=== PATIENT | male | born 1965 | race Caucasian/White ===

== ENCOUNTER → 2017-05-30 | Day surgery (SDC) | payer OTHER ==
[~2017-05-30] VITALS: Ht 177.8 cm; Wt 83.9 kg
[~2017-05-30] MED LIST: ALBU8.5H2 INHALATION; METR500T PO; OMEP20CA11 PO; OMEP20TA86 PO; Sodium Chloride LOK Flush 10 mL Syringe IV PRN; fentaNYL-PF 50 mCg/mL 2 mL Inj IVPUSH PRN
[2017-05-30 09:15] VITALS: BP 138/89; PULSE 87; RESP 16; O2SAT 98
[2017-05-30] MEDS: 0.9% Sodium Chloride 1,000 ML IV SCH ×2 (09:25→10:02)
[2017-05-30 10:19] VITALS: BP 110/74; PULSE 89; O2SAT 97
[2017-05-30 10:25] VITALS: BP 111/67; PULSE 77; O2SAT 97
[2017-05-30 10:35] VITALS: BP 109/74; PULSE 86; O2SAT 97
--- NOTE | 2017-05-30 10:37 | ENDO ---
[address] [address] ENDOSCOPY PROCEDURE PATIENT: NIRMAL SNYDER : 1965 MR#: [id number] ADMIT: 05/30/2017 JOB ID: [id number] DATE: 05/30/2017 TYPE OF OPERATION: 1. Esophagogastroduodenoscopy with biopsy. 2. Colonoscopy with biopsy. PREOPERATIVE DIAGNOSIS(ES): Abdominal pain, diarrhea, rectal bleeding. POSTOPERATIVE DIAGNOSIS(ES): 1. Mild nonerosive gastritis. 2. Small internal hemorrhoids. 3. A 3 mm ascending colon removed by cold biopsy forceps. 4. A small ulcer seen at the opening of the ileocecal valve. ANESTHESIA: 1. Fentanyl 175 mcg. 2. Versed 9 mg IV administered. COMPLICATIONS: None. BLOOD LOSS: Minimal. DESCRIPTION OF PROCEDURE: After the risks and benefits were explained to the patient, informed consent was obtained. After anesthesia administered, the upper endoscope was inserted into the mouth, intubated into esophagus, stomach, second portion of duodenum. Mucosa carefully examined. After procedure was done, the scope withdrawn and procedure terminated. Colonoscope was then inserted per rectum to the terminal ileum and mucosa carefully examined. Prep of the patient was excellent. After procedure was done, the scope withdrawn and procedure terminated. FINDINGS: Upon inspection of the esophagus, the esophagus was normal without masses, ulcers or lesions. Z-line located 40 cm from incisors. Upon entering the stomach, there was mild nonerosive gastritis that was seen. No masses, ulcers or lesions were seen. Retroflexion normal. Duodenal bulb, first and second portion normal. Biopsy taken at the duodenum, antrum and body of stomach. Upon inspection of the anus, no masses, hemorrhoids, ulcers, or fissures are seen. Throughout the entire examination, there was a 3 mm ascending colon polyp removed by cold biopsy forceps. There was also a very small 2 mm ulcers that was seen at the opening of the ileocecal valve. Terminal ileum appeared normal. Biopsies taken of the terminal ileum and random colon. Retroflexion showed small internal hemorrhoids. IMPRESSIONS: 1. Mild nonerosive gastritis. 2. Small internal hemorrhoids. 3. A 3 mm ascending colon polyp removed by cold biopsy forceps. 4. A 2 mm ulcer seen at the opening of the ileocecal valve. RECOMMENDATIONS: 1. Await pathology results. 2. Followup in GI clinic as needed. If tubular adenoma, then next colonoscopy should be in five years.
[2017-05-30 10:45] VITALS: BP 90/57; PULSE 97; O2SAT 98
--- NOTE | 2017-05-31 11:17 | PATH ---
SURGICAL PATHOLOGY Attending Physician:Sebastian Singh MD CASE STATUS: Signed Out PATIENT NAME: NIRMAL SNYDER PID: [id number] : 1965 DATE COLLECTED:05/30/2017 16:41 SPECIMEN: 1: Duodenum, Biopsy 2: Stomach, Antrum, Biopsy 3: Gastric, Biopsy 4: Ileum, Biopsy 5: Colon, Biopsy 6: Colon, Polyp CLINICAL HISTORY: 1). DUODENUM BIOPSY 2). ANTRUM BIOPSY 3). GASTRIC BODY BIOPSY (RULE OUT H.PYLORI) 4). TERMINAL ILEUM BIOPSY 5). RANDOM COLON BIOPSY 6). ASCENDING COLON POLYP FINAL DIAGNOSIS: 1.DUODENUM BIOPSY: FRAGMENTS OF NORMAL SMALL BOWEL MUCOSA. Normal delicate mucosal villi present. Negative for significant inflammation, dysplasia and malignancy. 2.GASTRIC ANTRUM BIOPSY: FRAGMENTS OF ANTRAL MUCOSA NEGATIVE FOR SIGNIFICANT INFLAMMATION. Negative for evidence of Helicobacter on H&E stain. Negative for intestinal metaplasia. Negative for dysplasia and malignancy. 3.GASTRIC BODY BIOPSY: GASTRIC FUNDIC MUCOSA WITH SUPERFICIAL HYPEREMIA, BUT NEGATIVE FOR SIGNIFICANT INFLAMMATION. Negative for evidence of Helicobacter on H&E stain. Negative for intestinal metaplasia. Negative for dysplasia and malignancy. 4.TERMINAL ILEUM BIOPSY: FRAGMENT OF SMALL BOWEL MUCOSA CONSISTENT WITH TERMINAL ILEUM. Negative for significant inflammation, dysplasia and malignancy. 5.RANDOM COLON BIOPSY: FRAGMENTS OF NORMAL-APPEARING COLON MUCOSA. Negative for significant architectural distortion. Negative for significant inflammation, dysplasia and malignancy. 6.ASCENDING COLON POLYP: TUBULAR ADENOMA INVOLVING SINGLE BIOPSY FRAGMENT. ICD10 D12.2 GROSS DESCRIPTION: The specimen is received in six formalin filled containers labeled with the patient's name. 1). The specimen is labeled "duodenum" and consists of 3 portions of tissue which aggregate to 0.3 x 0.2 x 0.2 CM. The specimen is entirely submitted in cassette 1A. 2). The specimen is labeled "antrum" and consists of a 0.5 x 0.3 x 0.2 CM portion of tissue which is entirely submitted in cassette 2A. 3). The specimen is labeled "gastric body" and consists of 2 portions of tissue which aggregate to 0.3 x 0.3 x 0.3 CM. The specimen is entirely submitted in cassettes 3A. 4). The specimen is labeled "terminal ileum" and consists of 2 portions of tissue which aggregate to 0.2 x 0.2 x 0.2 CM. The specimen is entirely submitted in cassette 4A. 5). The specimen is labeled "random colon" and consists of 3 portions of tissue which aggregate to 0.3 x 0.3 x 0.2 CM. The specimen is entirely submitted in cassette 5A. 6). The specimen is labeled "ascending colon" and consists of 2 portions of tissue which aggregate to 0.2 x 0.2 x 0.2 CM. The specimen is entirely submitted in cassette 6A. 05/30/2017DC MICRO DESCRIPTION: See diagnosis. ICD-9 CODES: CPT CODES: 1: 43946 2: 95012 3: 94108 4: 73944 5: 29175 6: 39814 Electronically Signed Out Scotty Hernández MD Formerly [facility] Pathology [facility] [address], [place] [address] Technical component performed at [facility], [facility] [address], [place], [address]
== END | disposition home or self-care (01) ==
LOC: END 01:09
PROVIDERS: ATTEND Internal Medicine Gastroenterology
DX: K64.8 Other hemorrhoids (principal); R19.7 Diarrhea, unspecified; K29.50 Unspecified chronic gastritis without bleeding; R10.84 Generalized abdominal pain; F17.210 Nicotine dependence, cigarettes, uncomplicated; Z79.899 Other long term (current) drug therapy; Z88.8 Allergy status to other drugs, medicaments and biological substances
CPT/HCPCS: 43239; 45380; 99153; G0500; J2250; J3010; J7030